=== PATIENT | female | born 2005 | race Caucasian/White ===

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

== ENCOUNTER 2023-12-23 20:36 | Emergency (ER) | payer MEDICAID, OTHER ==
[~2023-12-23] VITALS: Ht 162.6 cm; Wt 58.5 kg
[~2023-12-23 20:36] MED LIST: CIPR500T4 PO; IBUP-2213 PO; ONDA8TAB87 PO
[2023-12-23 21:01] VITALS: BP 120/84; PULSE 107; RESP 19; TEMP 97.5; O2SAT 99
[2023-12-23 21:45] LABS: BILIRUBIN,URINE 2+ (NEGATIVE); BLOOD, URINE 3+ (NEGATIVE); COLOR,URINE BROWN (YELLOW); LEUKOCYTE ESTERASE ,URINE 2+ (NEGATIVE); NITRITE, URINE POSITIVE (NEGATIVE); PH,URINE 6.5 (5.0-9.0); PROTEIN,URINE 3+ (NEGATIVE); UGLUCOSE NEGATIVE (NEGATIVE)
[2023-12-23 22:02] LABS: ICTOTEST NEGATIVE (NEGATIVE)
[2023-12-23 22:03] LABS: APPEARANCE,URINE TURBID (CLEAR); RBC,URINE 50-80 /HPF (0-5)
[2023-12-23 22:04] LABS: BACTERIA,URINE 2+ /HPF (None Seen); SQUAMOUS EPITHELIAL CELL,UR 4-10 (MOD) /LPF (0-3 (FEW))
[2023-12-23] MEDS ORDERED: cefTRIAXone 1,000 MG VIAL ONE (23:07)
[2023-12-23] MEDS ORDERED: LIDOCAINE MPF 1% 5 ML ONE (23:08)
[2023-12-23] MEDS ORDERED: PHEN-1877 PO (23:14)
[2023-12-23] MEDS ORDERED: CIPR500T4 PO (23:14)
[2023-12-23] MEDS: cefTRIAXone 1,000 MG in LIDOCAINE MPF 1% 2.1 ML IM ONE (23:15)
[2023-12-23] MEDS: KETOROLAC 60 MG/2 ML VIAL IM ONE (23:16)
== END 2023-12-23 23:43 | disposition home or self-care (01) ==
LOC: MED 20:36
DX: N39.0 Urinary tract infection, site not specified (principal); Z79.899 Other long term (current) drug therapy
CPT/HCPCS: 81001; 81025; 87086; 96372; 99284; J0696; J1885; J2001; 87186